=== PATIENT | male | born 1975 | race Caucasian/White ===

== ENCOUNTER 2024-05-05 16:09 | Inpatient (IN) | payer OTHER ==
[2024-05-05 16:32] VITALS: BMI 23.6
[2024-05-05] MEDS ORDERED: chlordiazePOXIDE HCL 25 MG CAPSULE PO PRN (16:39)
[2024-05-05] MEDS ORDERED: ONDANSETRON *ODT* 4 MG TABLET SL PRN (16:47)
[2024-05-05] MEDS ORDERED: cloNIDine HCL 0.1 MG TABLET ONE (16:47)
[2024-05-05] MEDS ORDERED: MAGNESIUM HYDROX 2400MG/30ML ORAL SUSPENSION 30 ML CUP PO PRN (16:47)
[2024-05-05] MEDS ORDERED: guaiFENesin 600 MG TABLET.ER (FP) PO PRN (16:47)
[2024-05-05] MEDS ORDERED: NALOXONE (NARCAN) HCL 4 MG/0.1 ML SPRAY NS PRN (16:47)
[2024-05-05] MEDS ORDERED: POLYETHYLENE GLYCOL (HEALTHYLAX) 3350 17 GM PACKET PO PRN (16:47)
[2024-05-05] MEDS ORDERED: MAG HYDROX/AL HYDROX/SIMETH 30 ML UNIT-DOSE CUP PO PRN (16:47)
[2024-05-05] MEDS ORDERED: NICOTINE POLACRILEX 2 MG LOZENGE BC PRN (16:47)
[2024-05-05] MEDS ORDERED: DICYCLOMINE HCL 10 MG CAPSULE PO PRN (16:47)
[2024-05-05] MEDS ORDERED: BENZOCAINE/MENTHOL (CHLORASEPTIC ) LOZENGE MM PRN (16:47)
[2024-05-05] MEDS ORDERED: LOPERAMIDE HCL 2 MG CAPSULE PO PRN (16:47)
[2024-05-05] MEDS ORDERED: BENZONATATE 200 MG CAPSULE PO PRN (16:47)
[2024-05-05] MEDS ORDERED: chlordiazePOXIDE HCL 25 MG CAPSULE ONE (16:53)
[2024-05-05] MEDS: cloNIDine HCL 0.1 MG TABLET PO ONE (16:54)
[2024-05-05] MEDS: chlordiazePOXIDE HCL 25 MG CAPSULE PO SCH (16:54)
[2024-05-05] MEDS: ROSUVASTATIN CA 20 MG TABLET PO SCH (22:25)
[2024-05-05] MEDS: MELATONIN 5 MG TABLETS PO SCH (22:25)
[2024-05-05] MEDS: CARVEDILOL 25 MG TABLET (FP) PO SCH (22:25)
[2024-05-05] MEDS: THIAMINE 100 MG TABLET PO SCH (22:25)
[2024-05-06] MEDS: PANTOPRAZOLE 40 MG TABLET PO SCH (07:39)
[2024-05-06] MEDS: ASPIRIN 81 MG CHEWABLE TABLETS PO SCH (10:14)
[2024-05-06] MEDS: LISINOPRIL 20 MG TABLET PO SCH (10:14)
[2024-05-06] MEDS: CLOPIDOGREL BISULFATE 75 MG TABLET (FP) PO SCH (10:14)
[2024-05-06] MEDS: PRENATAL VITAMINS W/ FOLIC ACID TABLET (FP) PO SCH (10:15)
[2024-05-06 12:36] LABS: HEMATOCRIT 41.5 % (35.4-49); HEMOGLOBIN 13.7 GM/dL (11.7-16.9); MCH 30.8 pg (25.7-33.7); MCHC 33.1 g/dl (32.0-35.9); MEAN PLT VOLUME 9.6 fl (7.5-11.1); PLATELET COUNT 215 10^3/uL (134-434); RBC 4.46 M/mm3 (4.00-5.60); RDW 15.2 % (11.9-15.9); WHITE BLOOD COUNT 3.6 K/mm3 (4.0-10.0)
[2024-05-06 12:49] LABS: CHLORIDE 99 mmol/L (98-107); POTASSIUM 3.1 mmol/L (3.5-5.1); SODIUM 138 mmol/L (136-145)
[2024-05-06 12:53] LABS: CALCIUM 9.7 mg/dL (8.5-10.1)
[2024-05-06 12:54] LABS: ALBUMIN 4.1 g/dl (3.4-5.0); ANION GAP 10 mmol/L (4-13); BLOOD UREA NITROGEN 14.5 mg/dL (7-18); CO2 30 mmol/L (21-32); GLUCOSE,RANDOM 123 mg/dL (74-106)
[2024-05-06 12:58] LABS: CREATININE 0.9 mg/dL (0.55-1.3)
[2024-05-06 12:59] LABS: SGOT/AST 22 U/L (15-37); SGPT/ALT 18 U/L (13-61); TOT PROT 7.3 g/dl (6.4-8.2)
[2024-05-06 13:00] LABS: ALK PHOS 103 U/L (45-117)
[2024-05-06 13:49] LABS: HIV INTERPRETATION NEGATIVE (NEGATIVE)
[2024-05-06] MEDS: NICOTINE POLACRILEX 2 MG GUM BUC PRN (17:51)
[2024-05-07] MEDS: chlordiazePOXIDE HCL 25 MG CAPSULE PO SCH (06:00)
[2024-05-07] MEDS: POTASSIUM CHLORIDE ORAL LIQUID 20 MEQ/15 ML PO ONE ×2 (11:16→17:46)
[2024-05-07] MEDS: ACETAMINOPHEN 325 MG TABLET (FP) PO PRN (22:36)
[2024-05-07] MEDS: METHOCARBAMOL 500 MG TABLET PO PRN (22:37)
[2024-05-08] MEDS ORDERED: chlordiazePOXIDE HCL 10 MG CAPSULE PO PRN
[2024-05-08] MEDS: chlordiazePOXIDE HCL 10 MG CAPSULE PO SCH (05:31)
[2024-05-09] MEDS: chlordiazePOXIDE HCL 10 MG CAPSULE PO SCH (06:22)
[2024-05-09] MEDS ORDERED: IBUPROFEN 400 MG TABLET (FP) PO PRN (09:00)
[2024-05-09] MEDS: ACETAMINOPHEN 325 MG TABLET (FP) PO PRN (10:26)
[2024-05-09] MEDS: LISINOPRIL 20 MG TABLET PO ONE (13:31)
[2024-05-09] MEDS: hydrOXYzine PAMOATE 25 MG CAPSULE (FP) PO PRN (21:17)
[2024-05-09] MEDS: LOSARTAN POTASSIUM 25 MG TABLET PO ONE (23:29)
[2024-05-10] MEDS: chlordiazePOXIDE HCL 10 MG CAPSULE PO ONE (05:49)
[2024-05-10] MEDS ORDERED: NALOXONE (NYS OPIOID OVERDOSE PROGRAM) 4 MG/0.1 ML SPRAY NS PRN (08:00)
[2024-05-10 09:38] VITALS: BP 162/114; PULSE 76; RESP 18; TEMP 97
[2024-05-10] MEDS: LISINOPRIL 20 MG TABLET PO ONE (10:30)
== END 2024-05-10 13:30 | disposition home or self-care (01) | DRG 775 ==
LOC: YASAS 16:09 → Y3N 17:24
PROVIDERS: ADMIT Allergy & Immunology; ATTEND Surgery
PROC: HZ2ZZZZ Detoxification Services for Substance Abuse Treatment (ICD-10-PCS; principal; 2024-05-05)
DX: F10.230 Alcohol dependence with withdrawal, uncomplicated (principal); F17.210 Nicotine dependence, cigarettes, uncomplicated; F32.A Depression, unspecified; E87.6 Hypokalemia; E78.5 Hyperlipidemia, unspecified; I25.10 Atherosclerotic heart disease of native coronary artery without angina pectoris; I10 Essential (primary) hypertension; Z95.5 Presence of coronary angioplasty implant and graft; K21.9 Gastro-esophageal reflux disease without esophagitis; G89.29 Other chronic pain; Z99.89 Dependence on other enabling machines and devices; Z59.02 Unsheltered homelessness
CPT/HCPCS: 36415; 80053; 80307; 84132; 85027; 86780; 87389; 93005; 93010

== ENCOUNTER 2024-05-10 13:39 | Inpatient (IN) | payer OTHER ==
[2024-05-10] MEDS ORDERED: NALOXONE (NARCAN) HCL 4 MG/0.1 ML SPRAY NS PRN (15:30)
[2024-05-10] MEDS ORDERED: MAGNESIUM HYDROX 2400MG/30ML ORAL SUSPENSION 30 ML CUP PO PRN (15:30)
[2024-05-10] MEDS ORDERED: BENZONATATE 200 MG CAPSULE PO PRN (15:30)
[2024-05-10] MEDS ORDERED: LOPERAMIDE HCL 2 MG CAPSULE PO PRN (15:30)
[2024-05-10] MEDS ORDERED: BENZOCAINE/MENTHOL (CHLORASEPTIC ) LOZENGE MM PRN (15:30)
[2024-05-10] MEDS ORDERED: NALOXONE HCL 0.4 MG/ML VIAL IVPUSH PRN (15:30)
[2024-05-10] MEDS ORDERED: guaiFENesin 600 MG TABLET.ER (FP) PO PRN (15:30)
[2024-05-10] MEDS ORDERED: IBUPROFEN 400 MG TABLET (FP) PO PRN (15:30)
[2024-05-10] MEDS ORDERED: IBUPROFEN 600 MG TABLET (FP) PO PRN (15:30)
[2024-05-10] MEDS: cloNIDine HCL 0.1 MG TABLET PO ONE (20:46)
[2024-05-10] MEDS: MELATONIN 5 MG TABLETS PO ONE (21:57)
[2024-05-10] MEDS: CARVEDILOL 25 MG TABLET (FP) PO SCH (21:57)
[2024-05-10] MEDS: THIAMINE 100 MG TABLET PO SCH (21:57)
[2024-05-10] MEDS ORDERED: MELATONIN 5 MG TABLETS PO SCH (22:00)
[2024-05-10] MEDS: MULTIVITAMINS (DAILY MVI) TABLET (FP) PO SCH (23:04)
[2024-05-11] MEDS: LISINOPRIL 20 MG TABLET PO SCH (09:30)
[2024-05-11] MEDS: CLOPIDOGREL BISULFATE 75 MG TABLET (FP) PO SCH (09:30)
[2024-05-11] MEDS: NICOTINE 21 MG/24 HOURS TOPICAL PATCH TD SCH (09:30)
[2024-05-11] MEDS: PANTOPRAZOLE 40 MG TABLET PO SCH (09:30)
[2024-05-11] MEDS: ASPIRIN 81 MG CHEWABLE TABLETS PO SCH (09:30)
[2024-05-11] MEDS: ROSUVASTATIN CA 20 MG TABLET PO SCH (09:31)
[2024-05-11] MEDS: PRENATAL VITAMINS W/ FOLIC ACID TABLET (FP) PO SCH (09:31)
[2024-05-11] MEDS: ACETAMINOPHEN 325 MG TABLET (FP) PO PRN (16:40)
[2024-05-11] MEDS: CARVEDILOL 25 MG TABLET (FP) PO SCH (21:31)
[2024-05-11] MEDS: MELATONIN 5 MG TABLETS PO SCH (21:32)
[2024-05-12] MEDS ORDERED: HYDROCORTISONE 1% TOPICAL CREAM 30 GM TUBE TP PRN (10:58)
[2024-05-12] MEDS: hydrOXYzine PAMOATE 25 MG CAPSULE (FP) PO PRN (11:05)
[2024-05-12] MEDS: SELENIUM SULFIDE 2.25% 180 ML SHAMPOO TP SCH (12:15)
[2024-05-12] MEDS ORDERED: DOCUSATE SODIUM 100 MG CAPSULE (FP) PO PRN (12:33)
[2024-05-12] MEDS: NALTREXONE HCL 50 MG TABLET PO ONE (14:07)
[2024-05-12] MEDS: METHOCARBAMOL 500 MG TABLET PO PRN (20:31)
[2024-05-12] MEDS ORDERED: LISINOPRIL 10 MG TABLET PO ONE (20:48)
[2024-05-12] MEDS: MIRTAZAPINE 15 MG TABLET (FP) PO SCH (21:55)
[2024-05-12] MEDS: LISINOPRIL 10 MG TABLET PO ONE (22:19)
[2024-05-13] MEDS ORDERED: cloNIDine HCL 0.1 MG TABLET PO SCH ×3 (08:45→13:30)
[2024-05-13] MEDS: LISINOPRIL 20 MG TABLET PO SCH (09:14)
[2024-05-13] MEDS: NALTREXONE HCL 50 MG TABLET PO SCH (09:15)
[2024-05-13 13:59] LABS: PROTHROMBIN TIME (PATIENT) 11.3 SEC (9.7-13.0)
[2024-05-13] MEDS: cloNIDine HCL 0.1 MG TABLET PO PRN (14:17)
[2024-05-15] MEDS: cloNIDine HCL 0.1 MG TABLET PO ONE (01:28)
[2024-05-15] MEDS: MAGNESIUM OXIDE 400 MG TABLET (FP) PO SCH (12:22)
[2024-05-15] MEDS: CHOLECALCIFEROL (VIT D3) 1,000 UNIT (25 MCG) TABLET PO SCH (14:23)
[2024-05-15] MEDS: LACTULOSE 20 GM/30 ML UDC (FOR ORAL USE ONLY) PO SCH (14:23)
[2024-05-17] MEDS: HYDROCHLOROTHIAZIDE 25 MG TABLET (FP) PO SCH (10:13)
[2024-05-18] MEDS: NICOTINE POLACRILEX 4 MG GUM BUC PRN (14:16)
[2024-05-22] MEDS: NICOTINE POLACRILEX 4 MG LOZENGE BC PRN (21:32)
[2024-05-23] MEDS: SELENIUM SULFIDE 2.25% 180 ML SHAMPOO TP SCH (14:44)
[2024-05-23] MEDS: VARENICLINE TARTRATE 0.5 MG TAB PO SCH (14:55)
[2024-05-26] MEDS: VARENICLINE TARTRATE 0.5 MG TAB PO SCH (09:53)
[2024-05-26] MEDS ORDERED: NALTREXONE MICROSPHERES (VIVITROL) 380 MG DISP.SYRIN IM ONE ×2 (10:00)
[2024-05-27] MEDS: MIRTAZAPINE 15 MG TABLET (FP) PO SCH (21:07)
[2024-05-28] MEDS: POLYETHYLENE GLYCOL (HEALTHYLAX) 3350 17 GM PACKET PO PRN (14:58)
[2024-05-28] MEDS: MAG HYDROX/AL HYDROX/SIMETH 30 ML UNIT-DOSE CUP PO PRN (17:36)
[2024-05-29] MEDS: NALTREXONE MICROSPHERES (VIVITROL) 380 MG DISP.SYRIN IM ONE (10:38)
[2024-05-30] MEDS: NALTREXONE HCL 50 MG TABLET PO SCH (10:37)
[2024-05-31] MEDS: VARENICLINE TARTRATE 1 MG TAB PO SCH (12:10)
[2024-06-06] MEDS: NALTREXONE MICROSPHERES (VIVITROL) 380 MG DISP.SYRIN IM ONE (10:52)
[2024-06-07 06:33] VITALS: RESP 16; TEMP 97.7
[2024-06-07 08:50] VITALS: BP 107/69; PULSE 72
[2024-06-07] MEDS: NALOXONE (NYS OPIOID OVERDOSE PROGRAM) 4 MG/0.1 ML SPRAY NS SCH (09:12)
== END 2024-06-07 09:27 | disposition home or self-care (01) | DRG 772 ==
LOC: YASAS 13:39 → Y3E 13:40
PROVIDERS: ADMIT Psychiatry & Neurology Pain Medicine; ATTEND Family Medicine Addiction Medicine
PROC: HZ42ZZZ Group Counseling for Substance Abuse Treatment, Cognitive-Behavioral (ICD-10-PCS; principal; 2024-05-10)
DX: F10.20 Alcohol dependence, uncomplicated (principal); D12.0 Benign neoplasm of cecum; F17.210 Nicotine dependence, cigarettes, uncomplicated; F32.A Depression, unspecified; E72.20 Disorder of urea cycle metabolism, unspecified; I25.10 Atherosclerotic heart disease of native coronary artery without angina pectoris; I10 Essential (primary) hypertension; I25.2 Old myocardial infarction; Z95.1 Presence of aortocoronary bypass graft; L21.0 Seborrhea capitis; K59.00 Constipation, unspecified; R53.1 Weakness; Z99.89 Dependence on other enabling machines and devices; Z59.02 Unsheltered homelessness
CPT/HCPCS: 36415; 82140; 82652; 83735; 85610; 86803; J2315